=== PATIENT | female | born 1965 | race Caucasian/White ===

== ENCOUNTER → 2017-02-28 | Outpatient (CLI) | payer BC, OTHER ==
[2017-02-28 16:43] LABS: BASO % 0.5 %; BASO ABS # 0.04 K/uL (0-0.2); COMPLETE YES; EOS % 3.1 %; HEMATOCRIT 35.4 % (37-47); IG% 0.1 %; LYMPH % 48.5 %; MEAN CELL VOLUME 83.9 fL (80-100); MEAN CORPUSCULAR HEMOGLOBIN 25.4 pg (25-34); MEAN CORPUSCULAR HGB CONC 30.2 g/dl (32-36); MEAN PLATELET VOLUME 9.8 fL (7.4-10.4); NEUT % 38.8 %; PLATELET COUNT 517 K/uL (130-400); RED BLOOD COUNT 4.22 M/uL (4.2-5.4); WHITE BLOOD COUNT 7.63 K/uL (4.8-10.8)
--- NOTE | 2017-03-18 09:35 | CODING QUERY MEDICAL NECESSITY ---
SUPPORTING DIAGNOSIS NEEDED A supporting diagnosis is required for the test/procedure performed on this patient in order for us to be reimbursed by the patient's insurance. Please provide a supporting diagnosis for the following test/procedure listed below next to the test name along with your signature. *If there is no additional diagnosis for this patient that would support the following test/procedure please document that below next to the test/procedure. Test(s)/Procedure(s) that require a supporting diagnosis: DOS 02/28 * Vitamin D DIAGNOSIS: Provider Signature: Date: Thank you Loni Tobar Health Information Management Once completed, please kindly fax back to [phone] For questions please call [phone]
== END | disposition home or self-care (01) ==
LOC: C.LABPBG 14:51
PROVIDERS: ATTEND Physician Assistant
DX: M25.551 Pain in right hip (principal); M25.552 Pain in left hip; M25.561 Pain in right knee; M25.562 Pain in left knee; R50.9 Fever, unspecified; Z13.21 Encounter for screening for nutritional disorder; E55.9 Vitamin D deficiency, unspecified

== ENCOUNTER → 2017-03-05 | Outpatient (CLI) | payer BC, OTHER ==
[2017-03-05 18:11] LABS: LYME DISEASE AB IGG NEG (NEG)
[2017-03-05 18:16] LABS: LYME DISEASE AB IGM EQUIVOCAL (NEG)
[2017-03-11 10:42] LABS: 18KDIGG BAND NONREACTIVE (NONREACTIVE); 23KDIGG BAND NONREACTIVE (NONREACTIVE); 23KDIGM BAND NONREACTIVE (NONREACTIVE); 28KDIGG BAND NONREACTIVE (NONREACTIVE); 30KDIGG BAND NONREACTIVE (NONREACTIVE); 39KDIGG BAND NONREACTIVE (NONREACTIVE); 39KDIGM BAND NONREACTIVE (NONREACTIVE); 41KDIGG BAND REACTIVE (NONREACTIVE); 41KDIGM BAND NONREACTIVE (NONREACTIVE); 45KDIGG BAND NONREACTIVE (NONREACTIVE); 58KDIGG BAND NONREACTIVE (NONREACTIVE); 66KDIGG BAND NONREACTIVE (NONREACTIVE); 93KDIGG BAND NONREACTIVE (NONREACTIVE)
== END | disposition home or self-care (01) ==
LOC: C.LABPBG 15:12
PROVIDERS: ATTEND Physician Assistant
DX: R50.9 Fever, unspecified (principal)

== ENCOUNTER → 2017-03-11 | Outpatient (CLI) | payer BC ==
[2017-03-11 13:31] LABS: HEMATOCRIT 35.2 % (37-47); MEAN CELL VOLUME 83.6 fL (80-100); MEAN CORPUSCULAR HEMOGLOBIN 25.7 pg (25-34); MEAN CORPUSCULAR HGB CONC 30.7 g/dl (32-36); MEAN PLATELET VOLUME 10.6 fL (7.4-10.4); PLATELET COUNT 341 K/uL (130-400); RED BLOOD COUNT 4.21 M/uL (4.2-5.4); WHITE BLOOD COUNT 7.16 K/uL (4.8-10.8)
[2017-03-11 13:57] LABS: BLOOD UREA NITROGEN 11 mg/dl (7-18); BUN/CREATININE RATIO 14.8 (10-20); CALCIUM 8.6 mg/dl (8.5-10.1); CARBON DIOXIDE 26 mmol/L (21-32); CHLORIDE 111 mmol/L (98-107); CREATININE 0.74 mg/dl (0.60-1.20); GLUCOSE 80 mg/dl (70-99); POTASSIUM 3.9 mmol/L (3.5-5.1); SODIUM 142 mmol/L (136-145)
[2017-03-11 14:07] LABS: C-REACTIVE PROTEIN < 0.29 mg/dl (0-0.29); FERRITIN 3.7 ng/ml (8.0-388.0); RHEUMATOID FACTOR 47.2 U/mL (0-15); TOTAL IRON BINDING CAPACITY 364 mcg/dl (250-450)
[2017-03-11 14:51] LABS: BASO % 0.4 %; BASO ABS # 0.03 K/uL (0-0.2); COMPLETE YES; EOS % 9.1 %; IG% 0.1 %; LYMPH ABS # 3.65 K/uL (1.2-3.4); MONO % 8.4 %
== END | disposition home or self-care (01) ==
LOC: C.LABPBG 09:12
PROVIDERS: ATTEND Family Medicine
DX: R50.9 Fever, unspecified (principal); R53.83 Other fatigue; M25.50 Pain in unspecified joint

== ENCOUNTER → 2017-03-24 | Outpatient (CLI) | payer BC ==
--- NOTE | 2017-03-24 14:54 | DIAGNOSTIC IMAGING REPORT ---
LEFT HAND MIN 3 VIEWS ROUTINE CLINICAL HISTORY: TARSALGIA OF MULTIPLE JOINTS COMPARISON: None. DISCUSSION: Mild degenerative change of the interphalangeal joints throughout the hand. This is most prominent involving the proximal interphalangeal joint left fifth finger. No significant periventricular osteopenia. There is no evidence for soft tissue swelling. IMPRESSION: Mild/moderate degenerative change of the interphalangeal joints of the fifth finger and to a lesser extent fingers 1 through 4. Otherwise negative study Electronically signed by: Charles Puente M.D. 03/24/2017 2:53 PM Dictated Date/Time: 03/24/2017 2:52 PM
--- NOTE | 2017-03-24 14:58 | DIAGNOSTIC IMAGING REPORT ---
RIGHT HAND MIN 3 VIEWS ROUTINE CLINICAL HISTORY: Right hand pain COMPARISON: None. DISCUSSION: There are no acute fractures. There is minimal soft tissue swelling at the level of the proximal interphalangeal joints. There is no evidence of bony erosive disease. There is equivocal minor periarticular osteopenia IMPRESSION: 1. No acute fractures 2. No evidence of erosive disease Electronically signed by: Dexter Medel M.D. 03/24/2017 2:57 PM Dictated Date/Time: 03/24/2017 2:54 PM
[2017-03-30 07:12] LABS: ANTI-CENTROMERE AB <1.0 NEG AI (<1.0 NEG); ANTI-SS-A <1.0 NEG AI (<1.0 NEG); ANTI-SS-B <1.0 NEG AI (<1.0 NEG); DNA ds CRITHIDIA POSITIVE (NEGATIVE); Sm Antibody <1.0 NEG AI (<1.0 NEG)
== END | disposition home or self-care (01) ==
LOC: C.RAD1850 14:32
PROVIDERS: ATTEND Internal Medicine Rheumatology
DX: H04.123 Dry eye syndrome of bilateral lacrimal glands (principal); M25.50 Pain in unspecified joint; R53.83 Other fatigue; R70.0 Elevated erythrocyte sedimentation rate; R76.8 Other specified abnormal immunological findings in serum

== ENCOUNTER → 2017-03-25 | Outpatient (CLI) | payer BC | END | disposition home or self-care (01) | LOC: C.LABSPEC 11:06 | PROVIDERS: ATTEND Family Medicine | DX: M25.50 Pain in unspecified joint (principal) ==

== ENCOUNTER → 2017-08-18 | Outpatient (CLI) | payer BC ==
[2017-08-18 12:03] LABS: URINE APPEARANCE CLEAR (CLEAR); URINE BILIRUBIN NEG (NEG); URINE COLOR YELLOW; URINE NITRITE NEG (NEG); UROBILINOGEN NEG (NEG)
[2017-08-18 12:07] LABS: MANUAL MICROSCOPIC REQUIRED? NO; REVIEW REQ? NO
== END | disposition home or self-care (01) ==
LOC: C.LABSPEC 11:03
PROVIDERS: ATTEND Family Medicine
DX: R39.9 Unspecified symptoms and signs involving the genitourinary system (principal)

== ENCOUNTER → 2018-02-13 | Outpatient (CLI) | payer BC | END | disposition home or self-care (01) | LOC: C.LABPBG 12:51 | PROVIDERS: ATTEND Family Medicine | DX: Z12.31 Encounter for screening mammogram for malignant neoplasm of breast (principal); R31.29 Other microscopic hematuria ==

== ENCOUNTER → 2018-02-13 | Outpatient (CLI) | payer BC | END | disposition home or self-care (01) | LOC: C.PAPS 14:08 | PROVIDERS: ATTEND Family Medicine | DX: Z01.419 Encounter for gynecological examination (general) (routine) without abnormal findings (principal) ==

== ENCOUNTER 2018-03-12 13:31 | Emergency (ER) | payer BC ==
[~2018-03-12] VITALS: Ht 170.2 cm; Wt 112.3 kg
[2018-03-12 13:34] VITALS: TEMP 36.7; Ht 170.2 cm; Wt 112.3 kg
[2018-03-12] MEDS ORDERED: CYAN250T PO (14:25)
[2018-03-12] MEDS ORDERED: FLUT0.15 NAE (14:25)
[2018-03-12] MEDS ORDERED: COLLCAP PO (14:25)
[2018-03-12] MEDS ORDERED: BECL1AER5 NAE (14:25)
[2018-03-12] MEDS ORDERED: MAGN1CAP2 PO (14:25)
[2018-03-12] MEDS ORDERED: FRCT/ PO (14:25)
[2018-03-12] MEDS ORDERED: VENL75CA PO (14:25)
[2018-03-12] MEDS ORDERED: TURM1CAP4 PO (14:25)
[2018-03-12] MEDS ORDERED: PROCHLORPERAZINE 5 MG/ML 2 ML VIAL IV STA (14:26)
[2018-03-12] MEDS ORDERED: KETOROLAC TROMETHAMINE 30 MG/ML VIAL IV STA (14:26)
[2018-03-12] MEDS ORDERED: DEXAMETHASONE SOD INJ 4 MG/ML VIAL IV STA (14:26)
[2018-03-12] MEDS ORDERED: ACETAMINOPHEN 500 MG TAB PO STA (14:26)
[2018-03-12] MEDS ORDERED: SODIUM CHLORIDE 0.9% 1000ML 1,000 ML IV STA (14:26)
[2018-03-12] MEDS ORDERED: DiphenhydrAMINE HCL 50 MG/ML VIAL IV STA (14:26)
--- NOTE | 2018-03-12 15:27 | DIAGNOSTIC IMAGING REPORT ---
ANGIOGRAPHY HEAD COMBO CLINICAL HISTORY: 52 years-old Female presents with acute severe headache COMPARISON STUDY: None available TECHNIQUE: Unenhanced axial CT scan of the brain is performed. Subsequently, following the IV administration of 93 cc of Optiray 320, CT angiogram of the brain was performed from the skull base to the vertex. Images are reviewed in the axial, sagittal, and coronal planes. 3-D MIPS images are created and assessed. IV contrast was administered without complication. A dose lowering technique was utilized adhering to the principles of ALARA. CT DOSE: 723.85 mGy.cm FINDINGS: CT BRAIN: There is no acute intracranial hemorrhage, midline shift, hydrocephalus, intracranial mass, territorial ischemia or abnormal extra-axial collections. No abnormal intra-axial or extra-axial enhancement. Mastoid air cells and middle ear cavities are clear. No calvarial fracture. Mild polypoid mucosal thickening of the left maxillary sinus. CT ANGIOGRAM OF THE BRAIN: The imaged bilateral internal carotid arteries are patent. The bilateral anterior and middle cerebral arteries are also patent. Left vertebral artery is dominant. The right vertebral artery is markedly diminutive in size with the majority of the vessel terminating into the right PICA. Basilar artery appears patent and within normal limits. origin of the right posterior cerebral artery. There is no aneurysm, or proximal branch occlusion identified. Dural sinuses appear patent. IMPRESSION: 1. No acute intracranial abnormality identified. 2. Dominant left vertebral artery with markedly diminutive right vertebral artery. 3. Incidental note is made of origin of the right posterior cerebral artery. 4. No aneurysm, dissection or proximal branch occlusion identified. 5. Mild polypoid mucosal thickening of the left maxillary sinus. The above report was generated using voice recognition software. It may contain grammatical, syntax or spelling errors. Electronically signed by: Abraham Key M.D. 03/12/2018 3:26 PM Dictated Date/Time: 03/12/2018 3:19 PM
[2018-03-12 16:17] VITALS: BP 135/82; PULSE 84; O2SAT 96
--- NOTE | 2018-03-12 19:01 | EMERGENCY ROOM VISIT NOTE ---
History Report prepared by Raymond: Dionte Everett Under the Supervision of: Dr. Chino Wilson M.D. First contact with patient: 14:23 Chief Complaint: HEADACHE Stated Complaint: MIGRAIN History of Present Illness The patient is a 52 year old female who presents to the Emergency Room with complaints of a constant headache beginning last evening at 1900. She currently rates her discomfort a 7/10 in severity. The patient states she was out to dinner last night when she developed "lightning bolts" in her vision. She reports she then developed her headache, nausea, and strange smells. The patient notes she has a history of headaches and seeing the "lightning bolts" is not new. She states she took several doses of Fioricet throughout last evening and this morning. The patient reports it did not help her symptoms. She notes she was not able to remember household items last evening such as a closet. The patient states she woke up this morning and still had her symptoms. She reports she developed the lightning bolts again at work. The patient notes light makes her symptoms worse. She states the last headache she had was two months ago. The patient denies vomiting, seeing a neurologist, hitting her head , falling. Source of History: patient Onset: last evening at 1900 Position: head Symptom Intensity: 7/10 Quality: ache Timing: constant Modifying Factors (Worsening): other (lighting) Associated Symptoms: + nausea, No vomiting Note: Associated symptoms: lightning bolts in her vision, strange smells, inability to remember house hold items Denies: hitting her head, falling Review of Systems See HPI for pertinent positives & negatives. A total of 10 systems reviewed and were otherwise negative. Past Medical & Surgical Medical Problems: (1) Headache Family History Patient reports no known family medical history. Social History Smoking Status: Never Smoker Marital Status: Housing Status: lives with family Occupation Status: employed Current/Historical Medications Scheduled Beclomethasone Dipropionate (N (Qnasl), 2 SPRY HERI DAILY Collagen-Vitamin C (Collagen Plus Vitamin C), 1 CAP PO DAILY Cyanocobalamin (Vitamin B-12), 1 TAB PO DAILY Fluticasone Propionate (Nasal) (Flonase Allergy Relief), 2 SPRAYS HERI DAILY Magnesium Oxide (Mg Supplement (Magnesium), 1 CAP PO DAILY Turmeric (Curcuma Longa) (Turmeric), 1 CAP PO DAILY Venlafaxine Hcl (Effexor Xr), 75 MG PO DAILY Scheduled PRN Acetamin/Butalbital/Caffeine (Fioricet), 1-2 TAB PO Q4H PRN for Migraine Allergies Coded Allergies: No Known Allergies (Unverified , 03/12/18) Physical Exam Vital Signs Date Time Temp Pulse Resp B/P (MAP) Pulse Ox O2 Delivery O2 Flow Rate FiO2 03/12/18 16:17 84 16 135/82 96 03/12/18 14:49 83 18 129/80 97 Room Air 03/12/18 13:34 36.7 81 18 134/88 97 Room Air Physical Exam GENERAL: Patient is in no acute distress. HEENT: No acute trauma, normocephalic atraumatic, mucous membranes moist, no nasal congestion, no scleral icterus. Pupils equal and reactive to light. NECK: No stridor, no adenopathy, no meningismus, trachea is midline. LUNGS: Clear to auscultation bilaterally, no wheeze, no rhonchi, breath sounds equal. HEART: Without murmurs gallops or rubs, regular rate and rhythm. ABDOMEN: Soft, nontender, bowel sounds positive, no hernias, no peritonitis. EXTREMITIES: No cyanosis or edema, full range of motion of all the joints without pain or difficulty, no signs for acute trauma. NEUROLOGIC: Oriented x 3, no acute motor or sensory deficits, no focal weakness. No cerebellar deficits. SKIN: No rash, no jaundice, no diaphoresis Medical Decision & Procedures ER Provider Diagnostic Interpretation: Radiology results as stated below per my review and radiologist interpretation: ANGIOGRAPHY HEAD COMBO CLINICAL HISTORY: 52 years-old Female presents with acute severe headache COMPARISON STUDY: None available TECHNIQUE: Unenhanced axial CT scan of the brain is performed. Subsequently, following the IV administration of 93 cc of Optiray 320, CT angiogram of the brain was performed from the skull base to the vertex. Images are reviewed in the axial, sagittal, and coronal planes. 3-D MIPS images are created and assessed. IV contrast was administered without complication. A dose lowering technique was utilized adhering to the principles of ALARA. CT DOSE: 723.85 mGy.cm FINDINGS: CT BRAIN: There is no acute intracranial hemorrhage, midline shift, hydrocephalus, intracranial mass, territorial ischemia or abnormal extra-axial collections. No abnormal intra-axial or extra-axial enhancement. Mastoid air cells and middle ear cavities are clear. No calvarial fracture. Mild polypoid mucosal thickening of the left maxillary sinus. CT ANGIOGRAM OF THE BRAIN: The imaged bilateral internal carotid arteries are patent. The bilateral anterior and middle cerebral arteries are also patent. Left vertebral artery is dominant. The right vertebral artery is markedly diminutive in size with the majority of the vessel terminating into the right PICA. Basilar artery appears patent and within normal limits. origin of the right posterior cerebral artery. There is no aneurysm, or proximal branch occlusion identified. Dural sinuses appear patent. IMPRESSION: 1. No acute intracranial abnormality identified. 2. Dominant left vertebral artery with markedly diminutive right vertebral artery. 3. Incidental note is made of origin of the right posterior cerebral artery. 4. No aneurysm, dissection or proximal branch occlusion identified. 5. Mild polypoid mucosal thickening of the left maxillary sinus. The above report was generated using voice recognition software. It may contain grammatical, syntax or spelling errors. Electronically signed by: Abraham Key M.D. 03/12/2018 3:26 PM Dictated Date/Time: 03/12/2018 3:19 PM Medications Administered Medications (Trade) Dose Ordered Sig/Dev Route Start Time Stop Time Status Last Admin Dose Admin Prochlorperazine Edisylate (Compazine Inj) 10 mg NOW STAT IV 03/12/18 14:26 03/12/18 14:32 DC 03/12/18 14:48 10 MG Sodium Chloride 1,000 ml @ 999 mls/hr Q1H1M STAT IV 03/12/18 14:26 03/12/18 15:26 DC 03/12/18 14:47 999 MLS/HR Ketorolac Tromethamine (Toradol Inj) 30 mg NOW STAT IV 03/12/18 14:03/12/18 14:32 DC 03/12/18 14:48 30 MG Diphenhydramine HCl (Benadryl Inj) 50 mg NOW STAT IV 03/12/18 14:26 03/12/18 14:32 DC 03/12/18 14:48 50 MG Dexamethasone Sodium Phosphate (Decadron Inj) 10 mg NOW STAT IV 03/12/18 14:26 03/12/18 14:32 DC 03/12/18 14:48 10 MG Acetaminophen (Tylenol Tab) 1,000 mg NOW STAT PO 03/12/18 14:26 03/12/18 14:32 DC 03/12/18 14:47 1,000 MG ED Course 1424: The patient was evaluated in room B10. A complete history and physical exam was performed. 1426: Ordered Acetaminophen 1000mg PO, Decadron 10mg IV, Benadryl 50mg IV, Toradol 30mg IV, Sodium Chloride 1000 ml @ 999 mls/hr IV, Compazine 10mg IV 1604: Reevaluated the patient. Discussed results and discharge instructions: she verbalized understanding and agreement. The patient is ready for discharge. Medical Decision The patient is a 52 year old female who presents to the ED with complaints of a headache. Differential diagnoses considered include migraine headache, tension headache, meningitis, aneurysm, dehydration, intracellular bleeding, sinusitis. The patient presents with a headache and some visual disturbance. She carries a history of migraines. She has never had a brain image. On exam, there were no focal neurologic deficits. No meningismus, she was not febrile or toxic. Brain CT does not show bleeding, no evidence for aneurysm. Patient received IV saline, IV Compazine, IV Benadryl, IV Toradol, IV Decadron. She received oral Tylenol. She feels improved. The headache is likely migrainous. The patient is being discharged with outpatient follow-up. She was reassured. Medication Reconcilliation Current Medication List: was personally reviewed by me Blood Pressure Screening Patient's blood pressure: Elevated blood pressure Blood pressure disposition: Elevated BP felt to be situational Impression Primary Impression: Headache Additional Impression: Visual disturbance Scribe Attestation The scribe's documentation has been prepared under my direction and personally reviewed by me in its entirety. I confirm that the note above accurately reflects all work, treatment, procedures, and medical decision making performed by me. Departure Information Dispostion Home / Self-Care Referrals Caridad Linares MD (PCP) Forms HOME CARE DOCUMENTATION FORM, IMPORTANT VISIT INFORMATION Patient Instructions My [facility] Additional Instructions fluids rest sleep return if worsening Brain CT scan was ok today Problem Qualifiers
== END 2018-03-12 16:13 | disposition home or self-care (01) ==
LOC: C.EDB 13:32
DX: R51 Headache (principal); H53.9 Unspecified visual disturbance; Z79.899 Other long term (current) drug therapy

== ENCOUNTER 2023-05-30 10:08 | Inpatient (IN) ==
[2023-05-30] MEDS ORDERED: KETOROLAC TROMETHAMINE 15 MG/ML VIAL IV ONE (10:31)
[2023-05-30] MEDS ORDERED: ONDANSETRON INJ 2 MG/ML 2 ML VIAL IV STA (10:31)
[2023-05-30] MEDS ORDERED: fentaNYL citrate PF 100 MCG/2 ML VIAL IV STA (10:31)
[2023-05-30] MEDS ORDERED: SODIUM CHLORIDE 0.9% 1000ML 1,000 ML IV STA (10:31)
--- NOTE | 2023-05-30 10:35 | Emergency Department Note ---
Impression & Plan Myositis, Rhabdomyolysis, Abnormal LFTs ED Provider Note NAME: JORDAN PATIÑO AGE: 57 SEX: F : 1965 ARRIVES VIA: Walk-In INFORMANT: Patient, ED PROVIDER(S): Hugo Tamez DO CHIEF COMPLAINT: Muscle aches HPI: The patient is a 57-year-old female who presented to the emergency department for an evaluation muscle pain. The patient states that she has had ongoing symptoms since March of this year. She initially started having pain in her left shoulder. This is not necessarily new for her. She had an injection recently with orthopedics. She had a cortisone injection of the shoulder. She has started noticing over the last few days that she has been having very bad muscle aches. She describes her through her legs as well as her upper extremities. She states it hurts when she tries to walk. She denies having any chest pain or difficulty breathing. She denies having any abdominal pain. She denies having any dysuria hematuria or frequency. The patient called her family doctor and she was advised to call her orthopedic doctor because of the recent injection. She was then advised to come to the emergency department by orthopedics. She did have a bite of some sort of insect to her neck. She denies any recent bull's-eye rashes. ROS: See above HPI for pertinent positives & negatives. A total of 10 systems reviewed and were otherwise negative. PAST MEDICAL HISTORY: See Below PAST SURGICAL HISTORY: See Below FAMILY HISTORY: See Below SOCIAL HISTORY: See Below HOME MEDICATIONS: See Below ALLERGIES: See Below VITALS: See Below PHYSICAL EXAMINATION: GENERAL: The patient is awake and alert. The patient is somewhat anxious and uncomfortable appearing EYES: The conjunctivae are clear. The pupils are round and reactive. EARS, NOSE, MOUTH AND THROAT: The nose is without any evidence of any deformity. NECK: The neck is nontender and supple. RESPIRATORY: Normal respiratory effort is noted there is no evidence of wheezing rhonchi or rales CARDIOVASCULAR: Regular rate and rhythm noted there no murmurs rubs or gallops normal S1 normal S2. GASTROINTESTINAL: The abdomen is soft. Abdomen is nontender. MUSCULOSKELETAL/EXTREMITIES: There is no evidence of gross deformity full range of motion is noted in the hips and shoulders. SKIN: There is no obvious evidence of any rash. There are no petechiae, pallor or cyanosis noted. NEUROLOGIC: Patient is awake alert and oriented x3 strength is symmetric patellar reflexes are 2+ bilaterally MEDICAL DECISION MAKING: The patient is a 57-year-old female who presented to the emergency department for an evaluation of muscle pain. The patient did note some shoulder pain initially but this was not new for her. It had been going on since March of this year. She was seen by orthopedics and had an injection with cortisone in her left shoulder. She states that that pain is no worse but she started noticing over the last few days that she was having severe upper and lower extremity p ain. She also had pain to her back. The patient was treated with IV fluids and IV pain medication in the emergency department. She was reevaluated multiple times. She was found to have a significant elevation in her CPK as well as in her LFTs. I am unsure the exact cause of this. It is possible this could be related to postinfectious process or possibly from some medications including the injection. I discussed the patient's condition with her. I discussed her condition with the on-call [facility]ist. They have agreed to evaluate the patient in the emergency department. Triage Nursing notes reviewed. Prior medical records reviewed Vital Signs: reviewed and remarkable for no significant abnormalities Differential diagnosis: Muscular strain, fracture, dislocation, DVT, joint effusion, infection, soft tissue injury, vascular compromise, as well as other pathologies. ER treatment provided: See below Diagnostics interpreted by me: ECG: EKG was obtained in the emergency department. My interpretation is normal sinus rhythm at 83 bpm. There is no ectopy. There is no acute ST segment abnormalities noted. No previous tracing was available. Cardiac Monitoring: An order was placed for continuous cardiac monitoring. The monitor shows a rate of 84 bpm with sinus rhythm. Laboratory studies: As stated above and show below. Imaging studies: See below. Radiographic imaging was reviewed by myself Consultation(s): Dr. Bush who is on-call for the [facility]ist group was notified about the patient. Past Med/Surg History Medical History Anxiety Arthralgia of multiple joints Arthritis of knee, degenerative Connective tissue disease overlap syndrome Dry eyes, bilateral Iron deficiency anemia Lateral meniscus tear Positive RACHEL (antinuclear antibody) Surgical History History of ankle surgery History of carpal tunnel release History of delivery History of tonsillectomy Family History Aunt Breast cancer Father Myocardial infarction Diabetes Heart disease Hypertension Mother Stroke Hearing loss Allergies Denies family history of Ovarian cancer Prostate cancer Colorectal cancer Social History Smoking Status: Never smoker Do You Dip or Chew Tobacco: No; Hx Alcohol Use: No Hx Substance Use: No Preferred Language: Ghanaian Communication Ability: Effective Visual Impairment: Limited Hearing Ability: Normal Beliefs That Will Affect Care: None marital status: Current Living Situation: Spouse and Family Current Living Situation Comment: Lives at home with Spouse, Mother and two Grandchildren. 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- [employer] How many Children do You have: 2 Feels Safe at Home: Yes Childhood Exposure to Second-Hand Smoke: Yes caffeine: Yes (Soda x 1 bottle per day.) during the past year weight has: increased > 10 lbs Dental Care, Regularly: Yes Physical Activity Frequency: Daily Seatbelt Use: always Sunscreen Use: No Allergies Allergies Allergy/AdvReac Type Severity Reaction Status Date / Time latex Allergy Verified 06/29/20 10:57 No Known Drug Allergies Allergy Verified 06/29/20 10:57 Home Meds Home Medications Medication Instructions Recorded Confirmed baclofen 10 mg tablet 10 mg PO BID PRN Other 04/29/23 05/30/23 conjugated estrogens 0.625 mg/gram 1 applic vaginal UD 04/29/23 05/30/23 vaginal cream (Premarin) cyanocobalamin (vitamin B-12) 1,000 mcg PO DAILY 04/29/23 05/30/23 1,000 mcg tablet,extended release fluoride (sodium) 1.1 % dental 1 ea PO UD 04/29/23 05/30/23 paste (Sodium Fluoride 5000 Dry Mouth) hydroxychloroquine 200 mg tablet 200 mg PO DAILY 04/29/23 05/30/23 montelukast 10 mg tablet 10 mg PO DAILY 04/29/23 05/30/23 phentermine 37.5 mg tablet 37.5 mg PO DAILY 04/29/23 05/30/23 Turmeric 1 cap PO DAILY 05/30/23 05/30/23 azelastine 137 mcg (0.1 %) nasal 2 sprays intranasal BID PRN Other 05/30/23 05/30/23 spray aerosol magnesium 250 mg tablet 250 mg PO DAILY 05/30/23 05/30/23 meloxicam 15 mg tablet 15 mg PO DAILY 05/30/23 05/30/23 mometasone 50 mcg/actuation nasal 2 sprays intranasal DAILY PRN Other 05/30/23 05/30/23 spray Previous Rx's Medication Instructions Recorded [id number] 1 - 2 tab PO Q4H PRN migraine 06/07/19 50 mg-325 mg-40 mg tablet headache #60 tabs cyclobenzaprine 5 mg tablet 5 mg PO TID PRN muscle spasm #10 10/05/19 tabs Results & Data (ED) Vital Signs Vital Signs - 24 hr 05/30/23 10:13 05/30/23 11:14 05/30/23 11:46 Temperature 36.7 C Temperature Source Temporal Artery Scan Pulse Rate 94 H 79 Pulse Rate [Right Finger] 95 H Pulse Rate from SpO2 Sensor Respiratory Rate 20 18 Respiratory Effort / Characteristics Non-Labored Respiratory Depth Normal Normal Blood Pressure 135/87 Blood Pressure [Right Arm] 140/86 Blood Pressure Mean 103 Blood Pressure Mean [Right Arm] 104 Pulse Oximetry 100 99 Oxygen Delivery Method Room Air Sepsis Recent Fever Within 48 Hours No Sepsis New/Unexplained Change in Mental Status N/A Sepsis Action Taken by Nursing No Action Required 05/30/23 11:09 05/30/23 11:30 05/30/23 11:46 Temperature Temperature Source Pulse Rate 83 80 93 H Pulse Rate [Right Finger] Pulse Rate from SpO2 Sensor 83 79 94 H Respiratory Rate 18 18 14 Respiratory Effort / Characteristics Respiratory Depth Blood Pressure Blood Pressure [Right Arm] Blood Pressure Mean Blood Pressure Mean [Right Arm] Pulse Oximetry 96 98 100 Oxygen Delivery Method Sepsis Recent Fever Within 48 Hours Sepsis New/Unexplained Change in Mental Status Sepsis Action Taken by Nursing 05/30/23 11:46 05/30/23 12:00 05/30/23 12:30 Temperature Temperature Source Pulse Rate 80 80 Pulse Rate [Right Finger] Pulse Rate from SpO2 Sensor 80 80 Respiratory Rate 17 17 Respiratory Effort / Characteristics Respiratory Depth Blood Pressure 140/86 Blood Pressure [Right Arm] Blood Pressure Mean 94 Blood Pressure Mean [Right Arm] Pulse Oximetry 98 100 Oxygen Delivery Method Sepsis Recent Fever Within 48 Hours Sepsis New/Unexplained Change in Mental Status Sepsis Action Taken by Nursing 05/30/23 13:00 Temperature Temperature Source Pulse Rate 84 Pulse Rate [Right Finger] Pulse Rate from SpO2 Sensor 86 Respiratory Rate 21 Respiratory Effort / Characteristics Respiratory Depth Blood Pressure Blood Pressure [Right Arm] Blood Pressure Mean Blood Pressure Mean [Right Arm] Pulse Oximetry 100 Oxygen Delivery Method Sepsis Recent Fever Within 48 Hours Sepsis New/Unexplained Change in Mental Status Sepsis Action Taken by [facility] Medications Current Medication List: was personally reviewed by me Laboratory Data Attestation: I reviewed the patient's lab results. 05/30/23 11:00 05/30/23 11:00 Lab Results 05/30/23 05/30/23 05/30/23 Range/Units 10:46 11:00 11:00 WBC 10.95 H (4.8-10.8) K/ul RBC 5.20 (4.20-5.40) M/uL Hgb 15.1 (12.0-16.0) g/dl Hct 45.8 (37.0-47.0) % MCV 88.1 (80.0-100.0) fL MCH 29.0 (25.0-34.0) pg MCHC 33.0 (32.0-36.0) g/dL RDW Std Deviation 41.5 (36.4-46.3) fL RDW Coeff of Annalise 12.9 (11.5-14.5) % Plt Count 330 (130-400) K/uL MPV 10.7 (9.4-12.4) fL Immature Gran % (Auto) 0.3 % Neut % (Auto) 68.2 % Lymph % (Auto) 23.7 % Door % (Auto) 5.8 % Eos % (Auto) 1.6 % Baso % (Auto) 0.4 % Neut # (Auto) 7.47 H (1.40-6.50) K/uL Lymph # (Auto) 2.59 (1.2-3.4) K/uL Door # (Auto) 0.64 H (0.11-0.59) K/uL Eos # (Auto) 0.18 (0-0.50) K/uL Baso # (Auto) 0.04 (0-0.2) K/uL Immature Gran # (Auto) 0.03 (0.01-0.20) K/uL ESR 22 (0-30) mm/hr PT (9.0-12.0) Seconds INR (0.9-1.1) APTT (21.0-31.0) Seconds PTT Ratio Sodium (136-145) mmol/L Potassium (3.5-5.1) mmol/L Chloride (98-107) mmol/L Carbon Dioxide (21-32) mmol/L Anion Gap (3-11) BUN (6-23) mg/dl Creatinine (0.6-1.2) mg/dl Est Cr Clr Drug Dosing ml/min Est GFR ( Amer) ml/min Est GFR (Non-Af Amer) ml/min BUN/Creatinine Ratio (10-20) Glucose (70-99(Fasting)) mg/dl Calcium (8.6-10.3) mg/dl Total Bilirubin (0.2-1.0) mg/dl AST (13-39) U/L ALT (7-52) U/L Alkaline Phosphatase (34-104) U/L Total Creatine Kinase (26-192) U/L Troponin I High Sens (0-14) pg/ml C-Reactive Protein (0-0.5) mg/dl Total Protein (6.0-8.3) gm/dl Albumin (3.4-5.0) gm/dl Globulin (2.5-4.0) gm/dl Albumin/Globulin Ratio (0.9-2) Lipase (11-82) U/L Procalcitonin (0-0.5) ng/ml Urine Color Dark Yellow Urine Appearance Clear (Clear) Urine pH 6.5 (4.5-7.5) Ur Specific [place] >= 1.030 (1.000-1.030) Urine Protein 3+ H (Negative) Urine Glucose (UA) Negative (Negative) Urine Ketones Trace H (Negative) Urine Blood 3+ H (Negative) Urine Nitrite Negative (Negative) Urine Bilirubin 1+ H (Negative) Urine Urobilinogen Negative (Negative) Ur Leukocyte Esterase Negative (Negative) Urine RBC 0-4 (0-4) /hpf Urine WBC 5-10 H (0-5) /hpf Ur Epithelial Cells 20-30 H (0-5) /lpf Urine Bacteria 1+ H (Negative) Hyaline Casts 0-5 (0-5) /lpf Granular Casts 1-5 H (0) /lpf Urine Mucus Present A (None Prsent) Anaplasma Smear See Comment Lyme Disease IgG Ab (Negative) Lyme Disease IgM Ab (Negative) 05/30/23 05/30/23 05/30/23 Range/Units 11:00 11:00 11:00 WBC (4.8-10.8) K/ul RBC (4.20-5.40) M/uL Hgb (12.0-16.0) g/dl Hct (37.0-47.0) % MCV (80.0-100.0) fL MCH (25.0-34.0) pg MCHC (32.0-36.0) g/dL RDW Std Deviation (36.4-46.3) fL RDW Coeff of Annalise (11.5-14.5) % Plt Count (130-400) K/uL MPV (9.4-12.4) fL Immature Gran % (Auto) % Neut % (Auto) % Lymph % (Auto) % Door % (Auto) % Eos % (Auto) % Baso % (Auto) % Neut # (Auto) (1.40-6.50) K/uL Lymph # (Auto) (1.2-3.4) K/uL Door # (Auto) (0.11-0.59) K/uL Eos # (Auto) (0-0.50) K/uL Baso # (Auto) (0-0.2) K/uL Immature Gran # (Auto) (0.01-0.20) K/uL ESR (0-30) mm/hr PT 10.0 (9.0-12.0) Seconds INR 0.9 (0.9-1.1) APTT 20.8 L (21.0-31.0) Seconds PTT Ratio 0.7 Sodium 139 (136-145) mmol/L Potassium 3.7 (3.5-5.1) mmol/L Chloride 106 (98-107) mmol/L Carbon Dioxide 28 (21-32) mmol/L Anion Gap 5 (3-11) BUN 15 (6-23) mg/dl Creatinine 0.74 (0.6-1.2) mg/dl Est Cr Clr Drug Dosing 84.0 ml/min Est GFR ( Amer) 102.8 ml/min Est GFR (Non-Af Amer) 88.7 ml/min BUN/Creatinine Ratio 20.3 H (10-20) Glucose 98 (70-99(Fasting)) mg/dl Calcium 9.0 (8.6-10.3) mg/dl Total Bilirubin 0.3 (0.2-1.0) mg/dl AST 518 H (13-39) U/L ALT 233 H (7-52) U/L Alkaline Phosphatase 107 H (34-104) U/L Total Creatine Kinase 33229 H (26-192) U/L Troponin I High Sens 17.6 H (0-14) pg/ml C-Reactive Protein 0.95 H (0-0.5) mg/dl Total Protein 7.1 (6.0-8.3) gm/dl Albumin 3.6 (3.4-5.0) gm/dl Globulin 3.5 (2.5-4.0) gm/dl Albumin/Globulin Ratio 1.0 (0.9-2) Lipase 33 (11-82) U/L Procalcitonin < 0.05 (0-0.5) ng/ml Urine Color Urine Appearance (Clear) Urine pH (4.5-7.5) Ur Specific [place] (1.000-1.030) Urine Protein (Negative) Urine Glucose (UA) (Negative) Urine Ketones (Negative) Urine Blood (Negative) Urine Nitrite (Negative) Urine Bilirubin (Negative) Urine Urobilinogen (Negative) Ur Leukocyte Esterase (Negative) Urine RBC (0-4) /hpf Urine WBC (0-5) /hpf Ur Epithelial Cells (0-5) /lpf Urine Bacteria (Negative) Hyaline Casts (0-5) /lpf Granular Casts (0) /lpf Urine Mucus (None Prsent) Anaplasma Smear Lyme Disease IgG Ab Negative (Negative) Lyme Disease IgM Ab Negative (Negative) Administered Medications Discontinued Medications Fentanyl Citrate (Fentanyl Citrate Pf 100 Mcg/2 Ml Vial) 50 mcg IV NOW STA Stop: 05/30/23 10:32 Last Admin: 05/30/23 10:52 Dose: 50 mcg Documented By: ARNEL Sodium Chloride (Nss 1000ml) 1,000 mls @ 999 mls/hr IV .Q1H1M STA Stop: 05/30/23 11:31 Last Infusion: 05/30/23 12:09 Dose: 0 mls/hr Documented By: Admin: 05/30/23 10:59 Dose: 999 mls/hr Documented By: ARNEL Sodium Chloride (Nss 1000ml) 1,000 mls @ 999 mls/hr IV .Q1H1M ONE Stop: 05/30/23 13:08 Last Admin: 05/30/23 12:14 Dose: 999 mls/hr Documented By: ARNEL Ketorolac Tromethamine (Ketorolac Tromethamine 15 Mg/Ml Vial) 10 mg IV NOW ONE Stop: 05/30/23 10:32 Last Admin: 05/30/23 10:53 Dose: 10 mg Documented By: ARNEL Ondansetron HCl (Ondansetron Inj 2 Mg/Ml 2 Ml Vial) 4 mg IV NOW STA Stop: 05/30/23 10:32 Last Admin: 05/30/23 10:52 Dose: 4 mg Documented By: ARNEL Imaging Data Attestation: I personally reviewed and interpreted this imaging study as follows: My Impression: 1 view chest x-ray was obtained in the emergency department. My interpretation is no free air or definite infiltrate, final report below Radiologist's Impression: Chest X-Ray 05/30/23 10:31 XR chest 1V portable CLINICAL HISTORY: Fever TECHNIQUE: Single frontal radiograph of the chest was obtained. Comparison: None available at the time of this dictation. FINDINGS: No lines and tubes are seen. The cardiomediastinal silhouette is normal. The lungs are clear. No evidence of pleural effusion or pneumothorax. IMPRESSION: No acute abnormalities and in particular no radiographic evidence of pneumonia. ACT 112: Negative or not required by law. Electronically signed by: Isiah Arenas M.D. 05/30/2023 11:30 AM Discharge Plan Visit Data Chief Complaint: Pain (Generalized) Stated Complaint: BODY ACHES, MUSCLE CRAMPS ED Provider: Hugo Tamez Discharge Problem: Myositis, Rhabdomyolysis, Abnormal LFTs Patient Disposition: Being Evaluated by Hospitalist Forms Stand Alone Forms: My [facility] Prescriptions Prescriptions: No Action [id number]-[id number] 50-325-40 mg tablet 1 - 2 tab PO Q4H PRN (Reason: migraine headache) Qty: 60 1RF cyclobenzaprine 5 mg tablet 5 mg PO TID PRN (Reason: muscle spasm) Qty: 10 0RF cyanocobalamin (vitamin B-12) 1,000 mcg tablet extended release 1,000 mcg PO DAILY Premarin 0.625 mg/gram cream 1 applic vaginal UD Rx Instructions: twice a week fluoride (sodium) [Sodium Fluoride 5000 Dry Mouth] 1.1 % paste 1 ea PO UD phentermine 37.5 mg tablet 37.5 mg PO DAILY baclofen 10 mg tablet 10 mg PO BID PRN (Reason: Other) montelukast 10 mg tablet 10 mg PO DAILY hydroxychloroquine 200 mg tablet 200 mg PO DAILY meloxicam 15 mg tablet 15 mg PO DAILY magnesium 250 mg Tablet 250 mg PO DAILY Turmeric 1 cap PO DAILY Rx Instructions: pt didnt give dose mometasone 50 mcg/actuation spray,non-aerosol 2 sprays INTNAS DAILY PRN (Reason: Other) Rx Instructions: administer into each nostril azelastine 137 mcg (0.1 %) aerosol,spray 2 sprays INTNAS BID PRN (Reason: Other) Rx Instructions: administer into each nostril Referrals Referrals: Victoria Billingsley CRNP [Primary Care Provider] -
[2023-05-30 11:26] LABS: Appearance Urine Clear (Clear); Bilirubin Urine 1+ (Negative); Blood Urine 3+ (Negative); Glucose Urine UA Negative (Negative); Ketones Urine Trace (Negative); Leukocyte Esterase Urine Negative (Negative); Nitrite Urine Negative (Negative); Protein Urine 3+ (Negative); Specific Gravity Urine >= 1.030 (1.000-1.030); Urobilinogen Urine Negative (Negative); pH Urine 6.5 (4.5-7.5)
[2023-05-30 11:31] LABS: Color Urine Dark Yellow
[2023-05-30 11:31] LABS: Basophils # (auto) 0.04 K/uL (0-0.2); Basophils % (auto) 0.4 %; Eosinophils # (auto) 0.18 K/uL (0-0.50); Eosinophils % (auto) 1.6 %; Hematocrit (blood only) 45.8 % (37.0-47.0); Hemoglobin 15.1 g/dl (12.0-16.0); Immature Granulocytes # (auto) 0.03 K/uL (0.01-0.20); Immature Granulocytes % (auto) 0.3 %; Lymphocytes # (auto) 2.59 K/uL (1.2-3.4); Lymphocytes % (auto) 23.7 %; Mean Corpuscular Volume 88.1 fL (80.0-100.0); Mean Platelet Volume 10.7 fL (9.4-12.4); Monocytes # (auto) 0.64 K/uL (0.11-0.59); Monocytes % (auto) 5.8 %; Neutrophils # (auto) 7.47 K/uL (1.40-6.50); Neutrophils % (auto) 68.2 %; Platelet Count 330 K/uL (130-400); RDW Coefficient of Variation 12.9 % (11.5-14.5); RDW Standard Deviation 41.5 fL (36.4-46.3); White Blood Count 10.95 K/ul (4.8-10.8)
--- NOTE | 2023-05-30 11:31 | XRay Report ---
XR chest 1V portable CLINICAL HISTORY: Fever TECHNIQUE: Single frontal radiograph of the chest was obtained. Comparison: None available at the time of this dictation. FINDINGS: No lines and tubes are seen. The cardiomediastinal silhouette is normal. The lungs are clear. No evid ence of pleural effusion or pneumothorax. IMPRESSION: No acute abnormalities and in particular no radiographic evidence of pneumonia. ACT 112: Negative or not required by law. Electronically signed by: Isiah Arenas M.D. 05/30/2023 11:30 AM
[2023-05-30 11:42] LABS: Epithelial Cell Urine 20-30 /lpf (0-5); Hyaline Casts Urine 0-5 /lpf (0-5); Mucus Urine Present (None Prsent)
[2023-05-30 11:43] LABS: Bacteria Urine 1+ (Negative); RBC Urine 0-4 /hpf (0-4)
[2023-05-30 11:45] LABS: BUN Creatinine Ratio 20.3 (10-20); C Reactive Protein 0.95 mg/dl (0-0.5); Est GFR (African American) 102.8 ml/min; Est GFR (Non-African American) 88.7 ml/min; Potassium 3.7 mmol/L (3.5-5.1)
[2023-05-30 11:48] LABS: Albumin Level 3.6 gm/dl (3.4-5.0); Bilirubin,Total 0.3 mg/dl (0.2-1.0); Globulin 3.5 gm/dl (2.5-4.0); Total Protein 7.1 gm/dl (6.0-8.3)
[2023-05-30 11:50] LABS: Troponin I High Sensitivity 17.6 pg/ml (0-14)
[2023-05-30 11:54] LABS: INR 0.9 (0.9-1.1); Partial Thromboplastin Ratio 0.7; Partial Thromboplastin Time 20.8 Seconds (21.0-31.0)
[2023-05-30 12:00] LABS: Procalcitonin < 0.05 ng/ml (0-0.5)
[2023-05-30 12:06] LABS: Lyme Ab IgG w/WB Rflx Negative (Negative); Lyme Ab IgM w/WB Rflx Negative (Negative)
[2023-05-30] MEDS ORDERED: SODIUM CHLORIDE 0.9% 1000ML 1,000 ML IV ONE (12:08)
[2023-05-30] MEDS ORDERED: fentaNYL citrate PF 100 MCG/2 ML VIAL IV PRN (13:19)
--- NOTE | 2023-05-30 14:03 | History & Physical Report ---
Date of Service May 30, 2023 Assessment & Plan (1) Myalgia: Plan: 57 yo female with PMHx of chronic sinusitis, kidney stones, and rheumatoid arthritis presents with myalgias. #Myalgias #Elevated CK #Elevated LFTs -presented with 3 days severe myalgias. Unclear etiology. Ddx includes viral rhabdomyolysis vs myositis vs tick borne vs UTI. ?shoulder corticosteroid injection induced. Pt does have h/o RA so autoimmune etiology is in question. CK 24k, UA with 3+ blood and bacteria. Mild leukocytosis. CRP mildly elevated, ESR normal. LFTs elevated, trending upwards from a few weeks ago. Tick borne labs negative thus far. Vitals wnl, afebrile. -CXR unremarkable -received 2L NSS in ED. Will cont. with LRs @ 200mls for suspected rhabdo -start rocephin daily for possible UTI. Urine cx pending. Will hold off on tick borne treatment for now. -urine myoglobin pending -hep panel pending -pain control -rheum consulted; unfortunately patients clear coat sprayer Dr. Mayorga office is closed at this time and will reopen Friday. Would consider reaching out to them for further details of previous autoimmune workup. -trend labs #Rheumatoid Arthritis -diagnosed a few years ago, follows with [facility] (Dr. Rajeev Mayorga). -cont. hydroxychloroquine #Elevated troponin -trop 17 on admission. Suspect demand. EKG without ischemic changes. Trend. #Chronic Sinusitis -cont. montelukast #Weight Loss -cont. phentermine DVT ppx: lovenox FEN/GI: regular Code Status: full Dispo: med surg (2) Abnormal LFTs: (3) Elevated CK: (4) Sinus pressure: (5) Rheumatoid aortitis: (6) Elevated troponin: History of Present Illness Chief Complaint: myalgias Primary Care Provider: TERRANCE Gross 57 yo female with PMHx of chronic sinusitis, kidney stones, and rheumatoid arthritis presents with myalgias. 3 days ago patient began having severe generalized myalgias which have not been improving. She does endorse intermittent headache and did have increased urinary frequency with dark urine today. Otherwise denies fevers, chills, congestion, cough, chest pain, shortness of breath, abdominal pain, nausea, vomiting, constipation, diarrhea, dysuria, weakness. A day prior to her symptom onset she did have a steroid injection in her left shoulder for suspected bursitis. Her left shoulder has been hurting for the last couple of months. She did also go camping 2 weeks ago and does recall feeling an insect bite on her left neck but denies seeing any ticks or bulls eye rash. She [place]. Denies [id number] travel. Denies alcohol, tobacco, recreational drug use. Denies excessive exercise or lying down for long periods of time. She does have a history of rheumatoid arthritis on hydroxychloroquine and follows with her clear coat sprayer with Priscilla Muniz. Has not been diagnosed with any other autoimmune diseases however does state she has a long history of dry eyes and dry mouth. Of note she was seen in the ER on April [address] imaging at the time did not show imaging at that time did not show kidney stones however she does endorse having passed 10+ stones with back pain resolution. At that time her liver enzymes were mildly elevated as well. Allergies Allergy/AdvReac Type Severity Reaction Status Date / Time latex Allergy Verified 06/29/20 10:57 No Known Drug Allergies Allergy Verified 06/29/20 10:57 Home Medications Medication Instructions Recorded Confirmed Type bsrqpqatdu-twqicpfuatpyg-dhcgayub 1 - 2 tab PO Q4H PRN migraine 06/07/19 05/30/23 Rx 50 mg-325 mg-40 mg tablet headache #60 tabs cyclobenzaprine 5 mg tablet 5 mg PO TID PRN muscle spasm #10 10/05/19 05/30/23 Rx tabs baclofen 10 mg tablet 10 mg PO BID PRN Other 04/29/23 05/30/23 History conjugated estrogens 0.625 mg/gram 1 applic vaginal UD 04/29/23 05/30/23 History vaginal cream (Premarin) cyanocobalamin (vitamin B-12) 1,000 mcg PO DAILY 04/29/23 05/30/23 History 1,000 mcg tablet,extended release fluoride (sodium) 1.1 % dental 1 ea PO UD 04/29/23 05/30/23 History paste (Sodium Fluoride 5000 Dry Mouth) hydroxychloroquine 200 mg tablet 200 mg PO DAILY 04/29/23 05/30/23 History montelukast 10 mg tablet 10 mg PO DAILY 04/29/23 05/30/23 History phentermine 37.5 mg tablet 37.5 mg PO DAILY 04/29/23 05/30/23 History Turmeric 1 cap PO DAILY 05/30/23 05/30/23 History azelastine 137 mcg (0.1 %) nasal 2 sprays intranasal BID PRN Other 05/30/23 05/30/23 History spray aerosol magnesium 250 mg tablet 250 mg PO DAILY 05/30/23 05/30/23 History meloxicam 15 mg tablet 15 mg PO DAILY 05/30/23 05/30/23 History mometasone 50 mcg/actuation nasal 2 sprays intranasal DAILY PRN Other 05/30/23 05/30/23 History spray Past Med/Surg History Medical History Anxiety Arthralgia of multiple joints Arthritis of knee, degenerative Connective tissue disease overlap syndrome Dry eyes, bilateral Iron deficiency anemia Lateral meniscus tear Positive RACHEL (antinuclear antibody) Surgical History History of ankle surgery History of carpal tunnel release History of delivery History of tonsillectomy Family History Aunt Breast cancer Father Myocardial infarction Diabetes Heart disease Hypertension Mother Stroke Hearing loss Allergies Denies family history of Ovarian cancer Prostate cancer Colorectal cancer Social History Smoking Status: Never smoker Do You Dip or Chew Tobacco: No; Hx Alcohol Use: No Hx Substance Use: No Preferred Language: Thai Communication Ability: Effective Visual Impairment: Limited Hearing Ability: Normal Beliefs That Will Affect Care: None marital status: Current Living Situation: Spouse and Family Current Living Situation Comment: Lives at home with Spouse, Mother and two Grandchildren. 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 AOx3. Vitals as above. HEENT: No scleral injection or discharge.Dry mucous membranes. Clear oropharynx without exudate. Neck: Supple without lymphadenopathy or thyromegaly. Trachea midline. Lungs: Clear to auscultation bilaterally with good effort. Cardiac: Regular rate and rhythm. No murmurs. No extremity edema. 2+ distal peripheral pulses. Abdomen: Bowel sounds present. Soft, nontender, and nondistended.No guarding. Neg dawson's. No hepatosplenomegaly. MSK: No cyanosis or clubbing. Extremities motor strength 5/5. Skin: +L neck with tiny crusted lesion at insect bite site without surrounding erythema/tenderness. Neurologic: No focal deficits. PERRL. EOMI. Normal sensation bilateral extremities. Results & Data Results & Data Vital Signs (Past 12 Hours) Vital Signs Temp Pulse Pulse Resp BP BP Pulse Ox 05/30/23 13:45 78 16 142/87 H 98 05/30/23 13:00 84 21 100 05/30/23 12:30 80 17 100 05/30/23 12:00 80 17 98 05/30/23 11:46 140/86 05/30/23 11:46 93 H 14 100 05/30/23 11:30 80 18 98 05/30/23 11:09 83 18 96 05/30/23 11:46 95 H 18 140/86 99 05/30/23 11:14 79 05/30/23 10:13 36.7 C 94 H 20 135/87 100 O2 Del Method 05/30/23 13:45 Room Air 05/30/23 13:00 05/30/23 12:30 05/30/23 12:00 05/30/23 11:46 05/30/23 11:46 05/30/23 11:30 05/30/23 11:09 05/30/23 11:46 05/30/23 11:14 05/30/23 10:13 Room Air Laboratory Results Laboratory Results WBC 10.95 K/ul (4.8-10.8) H 05/30/23 11:00 RBC 5.20 M/uL (4.20-5.40) 05/30/23 11:00 Hgb 15.1 g/dl (12.0-16.0) 05/30/23 11:00 Hct 45.8 % (37.0-47.0) 05/30/23 11:00 MCV 88.1 fL (80.0-100.0) 05/30/23 11:00 MCH 29.0 pg (25.0-34.0) 05/30/23 11:00 MCHC 33.0 g/dL (32.0-36.0) 05/30/23 11:00 RDW Std Deviation 41.5 fL (36.4-46.3) 05/30/23 11:00 RDW Coeff of Annalise 12.9 % (11.5-14.5) 05/30/23 11:00 Plt Count 330 K/uL (130-400) 05/30/23 11:00 MPV 10.7 fL (9.4-12.4) 05/30/23 11:00 Immature Gran % (Auto) 0.3 % 05/30/23 11:00 Neut % (Auto) 68.2 % 05/30/23 11:00 Lymph % (Auto) 23.7 % 05/30/23 11:00 [place] % (Auto) 5.8 % 05/30/23 11:00 Eos % (Auto) 1.6 % 05/30/23 11:00 Baso % (Auto) 0.4 % 05/30/23 11:00 Neut # (Auto) 7.47 K/uL (1.40-6.50) H 05/30/23 11:00 Lymph # (Auto) 2.59 K/uL (1.2-3.4) 05/30/23 11:00 [place] # (Auto) 0.64 K/uL (0.11-0.59) H 05/30/23 11:00 Eos # (Auto) 0.18 K/uL (0-0.50) 05/30/23 11:00 Baso # (Auto) 0.04 K/uL (0-0.2) 05/30/23 11:00 Immature Gran # (Auto) 0.03 K/uL (0.01-0.20) 05/30/23 11:00 ESR 22 mm/hr (0-30) 05/30/23 11:00 PT 10.0 Seconds (9.0-12.0) 05/30/23 11:00 INR 0.9 (0.9-1.1) 05/30/23 11:00 APTT 20.8 Seconds (21.0-31.0) L 05/30/23 11:00 PTT Ratio 0.7 05/30/23 11:00 Sodium 139 mmol/L (136-145) 05/30/23 11:00 Potassium 3.7 mmol/L (3.5-5.1) 05/30/23 11:00 Chloride 106 mmol/L (98-107) 05/30/23 11:00 Carbon Dioxide 28 mmol/L (21-32) 05/30/23 11:00 Anion Gap 5 (3-11) 05/30/23 11:00 BUN 15 mg/dl (6-23) 05/30/23 11:00 Creatinine 0.74 mg/dl (0.6-1.2) 05/30/23 11:00 Est Cr Clr Drug Dosing 84.0 ml/min 05/30/23 11:00 Est GFR ( Amer) 102.8 ml/min 05/30/23 11:00 Est GFR (Non-Af Amer) 88.7 ml/min 05/30/23 11:00 BUN/Creatinine Ratio 20.3 (10-20) H 05/30/23 11:00 Glucose 98 mg/dl (70-99(Fasting)) 05/30/23 11:00 Calcium 9.0 mg/dl (8.6-10.3) 05/30/23 11:00 Total Bilirubin 0.3 mg/dl (0.2-1.0) 05/30/23 11:00 AST 518 U/L (13-39) H 05/30/23 11:00 ALT 233 U/L (7-52) H 05/30/23 11:00 Alkaline Phosphatase 107 U/L (34-104) H 05/30/23 11:00 Total Creatine Kinase 80336 U/L (26-192) H 05/30/23 11:00 Troponin I High Sens 17.6 pg/ml (0-14) H 05/30/23 11:00 C-Reactive Protein 0.95 mg/dl (0-0.5) H 05/30/23 11:00 Total Protein 7.1 gm/dl (6.0-8.3) 05/30/23 11:00 Albumin 3.6 gm/dl (3.4-5.0) 05/30/23 11:00 Globulin 3.5 gm/dl (2.5-4.0) 05/30/23 11:00 Albumin/Globulin Ratio 1.0 (0.9-2) 05/30/23 11:00 Lipase 33 U/L (11-82) 05/30/23 11:00 Procalcitonin < 0.05 ng/ml (0-0.5) 05/30/23 11:00 Urine Color Dark Yellow 05/30/23 10:46 Urine Appearance Clear (Clear) 05/30/23 10:46 Urine pH 6.5 (4.5-7.5) 05/30/23 10:46 Ur Specific [place] >= 1.030 (1.000-1.030) 05/30/23 10:46 Urine Protein 3+ (Negative) H 05/30/23 10:46 Urine Glucose (UA) Negative (Negative) 05/30/23 10:46 Urine Ketones Trace (Negative) H 05/30/23 10:46 Urine Blood 3+ (Negative) H 05/30/23 10:46 Urine Nitrite Negative (Negative) 05/30/23 10:46 Urine Bilirubin 1+ (Negative) H 05/30/23 10:46 Urine Urobilinogen Negative (Negative) 05/30/23 10:46 Ur Leukocyte Esterase Negative (Negative) 05/30/23 10:46 Urine RBC 0-4 /hpf (0-4) 05/30/23 10:46 Urine WBC 5-10 /hpf (0-5) H 05/30/23 10:46 Ur Epithelial Cells 20-30 /lpf (0-5) H 05/30/23 10:46 Urine Bacteria 1+ (Negative) H 05/30/23 10:46 Hyaline Casts 0-5 /lpf (0-5) 05/30/23 10:46 Granular Casts 1-5 /lpf (0) H 05/30/23 10:46 Urine Mucus Present (None Prsent) A 05/30/23 10:46 Anaplasma Smear See Comment 05/30/23 11:00 Lyme Disease IgG Ab Negative (Negative) 05/30/23 11:00 Lyme Disease IgM Ab Negative (Negative) 05/30/23 11:00 SARS-CoV-2, RNA, NAAT NEGATIVE (NEGATIVE) 05/30/23 12:43 Impressions Chest X-Ray 05/30/23 10:31 XR chest 1V portable CLINICAL HISTORY: Fever TECHNIQUE: Single frontal radiograph of the chest was obtained. Comparison: None available at the time of this dictation. FINDINGS: No lines and tubes are seen. The cardiomediastinal silhouette is normal. The lungs are clear. No evidence of pleural effusion or pneumothorax. IMPRESSION: No acute abnormalities and in particular no radiographic evidence of pneumonia. ACT 112: Negative or not required by law. Electronically signed by: Isiah Arenas M.D. 05/30/2023 11:30 AM Supervising Physician Co-Signing Physician Notes Patient seen and examined, chart reviewed, case discussed with Reyes Ceballos and I agree with the assessment and plan as above except as otherwise noted Labs and images reviewed Fani is a 57-year-old female with past medical history of rheumatoid arthritis and recent steroid injection in her shoulder for bursitis who presents with diffuse myalgias which started in her hands and are now in her legs which make her feel weak more from soreness and pain when she attempts to move then "weakness ". She is found to have rhabdomyolysis and transaminitis. She denies cough, shortness of breath, difficulty breathing. Has had some increased urinary frequency with small voids recently. Denies fever/chills. Is not on a statin. Has not had any medication changes recently differential includes toxic although no clear ingestion/new medications, infection although patient has not had any viral symptoms does have infected versus contaminated UA with some polyuria, inflammatory with a past history of RACHEL positive rheumatoid arthritis although her ESR is normal suggesting against underlying rheumatologic etiology. She does not show any severe electrolyte abnormalities, does have a mild elevated neutrophilic predominant leukocytosis without left shift. UA 3+ blood is likely from myoglobin. Clinically with increased frequency, although no dysuria. If Bacterial induced rhabdomyolysis --> higher risk of renal failure and will continue to monitor with aggressive fluids and antibiotic treatment. Agree with treating with fluids and electrolyte trending CK for rhabdomyolysis, and treating of potential underlying UTI with Rocephin at this time. Urine culture is pending. Resident Activity Tracking Resident Involvement: Resident Care Provided Care Provided: Adult Hospital Medicine
--- NOTE | 2023-05-30 14:16 | Electrocardiogram Report ---
Test Reason : Blood Pressure : / mmHG Vent. Rate : 083 BPM Atrial Rate : 083 BPM P-R Int : 126 ms QRS Dur : 072 ms QT Int : 390 ms P-R-T Axes : 062 074 062 degrees QTc Int : 458 ms Normal sinus rhythm Normal ECG No previous ECGs available Confirmed by Richie Kim ([id number]) on 05/30/2023 12:27:22 PM Referred By: Victoria Billingsley Confirmed By:Richie Kim
[2023-05-30] MEDS ORDERED: cefTRIAXone SODIUM 2000MG/70ML D5W IV STA (15:17)
[2023-05-30] MEDS ORDERED: ONDANSETRON 4 MG OD TAB PO PRN (16:46)
[2023-05-30] MEDS ORDERED: ACETAMINOPHEN 325 MG TAB PO PRN (16:46)
[2023-05-30] MEDS ORDERED: POLYETHYLENE (MIRALAX) 17 GM PACK PO PRN (16:46)
[2023-05-30] MEDS ORDERED: IBUPROFEN 600 MG TAB PO PRN (16:46)
[2023-05-30] MEDS: HYDROmorphone INJ 0.5 MG/0.5 ML SYR IV PRN ×2 (17:17→21:37)
[2023-05-30] MEDS: LACTATED RINGER'S 1,000 ML IV SCH ×2 (17:21→21:38)
[2023-05-30] MEDS: ENOXAPARIN INJ 40 MG/0.4 ML SYR SQ SCH (17:43)
[2023-05-31] MEDS: HYDROmorphone INJ 0.5 MG/0.5 ML SYR IV PRN ×4 (01:59→21:38)
[2023-05-31] MEDS: LACTATED RINGER'S 1,000 ML IV SCH ×6 (02:25→23:31)
[2023-05-31 07:40] LABS: Basophils # (auto) 0.03 K/uL (0-0.2); Basophils % (auto) 0.3 %; Eosinophils # (auto) 0.44 K/uL (0-0.50); Eosinophils % (auto) 4.6 %; Hemoglobin 12.7 g/dl (12.0-16.0); Immature Granulocytes # (auto) 0.02 K/uL (0.01-0.20); Immature Granulocytes % (auto) 0.2 %; Lymphocytes # (auto) 2.67 K/uL (1.2-3.4); Mean Corpuscular Hemoglobin 29.3 pg (25.0-34.0); Mean Corpuscular Hgb Conc 33.4 g/dL (32.0-36.0); Mean Corpuscular Volume 87.8 fL (80.0-100.0); Mean Platelet Volume 10.7 fL (9.4-12.4); Monocytes # (auto) 0.42 K/uL (0.11-0.59); Monocytes % (auto) 4.4 %; Neutrophils # (auto) 5.95 K/uL (1.40-6.50); Neutrophils % (auto) 62.5 %; Platelet Count 177 K/uL (130-400); RDW Coefficient of Variation 12.8 % (11.5-14.5); RDW Standard Deviation 41.2 fL (36.4-46.3); Red Blood Count 4.33 M/uL (4.20-5.40); White Blood Count 9.53 K/ul (4.8-10.8)
[2023-05-31] MEDS: MONTELUKAST SODIUM 10 MG TABLET PO SCH (08:21)
[2023-05-31] MEDS ORDERED: HYDROXYCHLOROQUINE SULFATE 200 MG TAB PO SCH (09:00)
--- NOTE | 2023-05-31 09:31 | Rheumatology Consultation ---
Rheumatology Consultation DOS May 31, [address] Ceballos Attending Physician Dr Chandra Reason for Consultation myositis Assessment & Plan (1) Elevated CK: presented with significant ly elevated ck suggestive of rhabdomyositis likely toxic in nature - either med, infectious (viral) or other. the degree of elevated CK with normal ESR and her physical exam points away from autoimmune related. it is interesting that she reported a mildly elevated CK in April noted by labs by her senior management consultant and when she came to the ED 04/29 her lfts were mildly elevated. do wonder if she has been having myositis for several weekss and finally hit a tipping point that brought her to the ED. in reviewing her med list phentermine is associated with myositis when I did a quick search. she reports restarting this medication around 1 month ago. she has used it since last april but not consistently. there are really no other medications on her list that would be concerning that I can tell. no steroids at this point as not felt to be autoimmune. would continue treatment for rhabdo and avoid phentermine at this point. will discuss with house staff as well. instructed her to contact Dr Pimentel after discharge for follow up (2) Myositis: see #1 Myositis location: multiple sites Myositis type: unspecified type Qualified Code(s): M60.9 - Myositis, unspecified (3) Rhabdomyolysis: see #1 Rhabdomyolysis type: non-traumatic Qualified Code(s): M62.82 - Rhabdomyolysis (4) Rheumatoid arthritis: unlikely related to her current presentation of mysotis given normal ESR, current exam and degree of elevation of CK. can continue with plaquenil. plaquenil has been associated with a myopathy but not a myositis Plan see #1 History of Present Illness Reason for Consultation: myositis Requesting Physician: Dr Ceballos Attending Physician: Allison Vega MD History of Present Illness Fani states she was diagnosed with RA over 5 yrs ago. she states at that time she was dealing with knee pain and seeing orthopaedics and failed steroid and gel injections. she was referred to Dr Pimentel ([facility]) and based on labs was told she had RA. she states she did have diffuse joint pains as well at that time. she states that plaquenil has been beneficial for her arthritis. if she misses doses her joints ache more. 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 she presented to [facility] with worsening muscle pains yesterday. she states that her muscle pains started on friday after work and worsened over the next few days. when she presented tot he [facility] ED yesterday her CK was noted to be around 24K with elevated ASST/ALT, alk phos and troponin. she reports that she did not take anything that was new for her. she has not been sick and no sick contacts. she reports a bug bite to her left anterior neck while at her camp 2 weeks ago but no tick bites that she is aware of. other than the muscle pains and associated weakness she feels fine. she was here at [facility] ED 04/29/23 for abd pain and diagnosed with enteritis and possible kidney stones. she was sent home and saw Dr Perkins of [place]. he did a cystoscopy and no stones found and the CT while at [facility] did not show stones. inbetween the ed v isit and seeing Dr Perkins she did pass small debrie that was sent for stone analysis but no definite stone noted in [facility] labs. she reports taking flomax x 1 dose around that time. she mentions that back in April her 's insurance was changing and Dr Pimentel got a bunch of labs and noted her CK was mildly elevated but her Liver studies were normal. she is not sure why he ordered a CK at that time given she had no diffuse muscle pains or weakness. she was sent for a liver US that was done at [facility] and was normal. she reports Dr Pimentel felt it was related to her job. she has been dealing with left shoulder pain and did see [facility] on Friday of this past week and was diagnosed with a bursitis. she did receive a steroid injection Friday and that night had more pain but it is now better. she hgas toelrated steroid injections in the past. she denies any fevers, chills, N,V,D or rashes. no trouble breathing or swallowing. Allergies Allergy/AdvReac Type Severity Reaction Status Date / Time latex Allergy Verified 06/29/20 10:57 No Known Drug Allergies Allergy Verified 06/29/20 10:57 Home Medications Medication Instructions Recorded Confirmed Type ozrqndphcg-bjtsjgowkmkjl-bheqzpja 1 - 2 tab PO Q4H PRN migraine 06/07/19 05/30/23 Rx 50 mg-325 mg-40 mg tablet headache #60 tabs cyclobenzaprine 5 mg tablet 5 mg PO TID PRN muscle spasm #10 10/05/19 05/30/23 Rx tabs baclofen 10 mg tablet 10 mg PO BID PRN Other 04/29/23 05/30/23 History conjugated estrogens 0.625 mg/gram 1 applic vaginal UD 04/29/23 05/30/23 History vaginal cream (Premarin) cyanocobalamin (vitamin B-12) 1,000 mcg PO DAILY 04/29/23 05/30/23 History 1,000 mcg tablet,extended release fluoride (sodium) 1.1 % dental 1 ea PO UD 04/29/23 05/30/23 History paste (Sodium Fluoride 5000 Dry Mouth) hydroxychloroquine 200 mg tablet 200 mg PO DAILY 04/29/23 05/30/23 History montelukast 10 mg tablet 10 mg PO DAILY 04/29/23 05/30/23 History phentermine 37.5 mg tablet 37.5 mg PO DAILY 04/29/23 05/30/23 History Turmeric 1 cap PO DAILY 05/30/23 05/30/23 History azelastine 137 mcg (0.1 %) nasal 2 sprays intranasal BID PRN Other 05/30/23 05/30/23 History spray aerosol magnesium 250 mg tablet 250 mg PO DAILY 05/30/23 05/30/23 History meloxicam 15 mg tablet 15 mg PO DAILY 05/30/23 05/30/23 History mometasone 50 mcg/actuation nasal 2 sprays intranasal DAILY PRN Other 05/30/23 05/30/23 History spray Patient History Medical History (Updated 05/31/23 @ 09:45 by Ankush Monique MD) Anxiety Arthralgia of multiple joints Arthritis of knee, degenerative Connective tissue disease overlap syndrome Dry eyes, bilateral Iron deficiency anemia Lateral meniscus tear Positive RACHEL (antinuclear antibody) Rheumatoid arthritis Surgical History History of ankle surgery History of carpal tunnel release History of delivery History of tonsillectomy Family History Aunt Breast cancer Father Myocardial infarction Diabetes Heart disease Hypertension Mother Stroke Hearing loss Allergies Denies family history of Ovarian cancer Prostate cancer Colorectal cancer Social History Smoking Status: Never smoker Do You Dip or Chew Tobacco: No; Hx Alcohol Use: No Hx Substance Use: No Preferred Language: Persian Communication Ability: Effective Visual Impairment: Limited Hearing Ability: Normal Household Worker Required: No Beliefs That Will Affect Care: None marital status: Current Living Situation: Family Current Living Situation Comment: Lives at home with Spouse, Mother and two Grandchildren. 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- [employer] How many Children do You have: 2 Other Information That Helps Us Care for You: No Feels Safe at Home: Yes Safety Concerns: Feels Safe At This Time Childhood Exposure to Second-Hand Smoke: Yes caffeine: Yes (Soda x 1 bottle per day.) during the past year weight has: increased > 10 lbs Dental Care, Regularly: Yes Physical Activity Frequency: Daily Seatbelt Use: always Sunscreen Use: No Assistive Devices: Glasses Review of Systems Constitutional: none Eyes: none Ear, Nose, Mouth, Throat: none Respiratory: none Cardiovascular: Additional Comments: none Gastrointestinal: see above Genitourinary: see above Musculoskeletal: muscle pains - diffuse Integumentary: none Physical Exam Constitutional: alert, examined in bad, NAD Eyes: PERRL, normal conjunctiva ENMT: normal mucose, moist, no ulcers Respiratory: CTA B/L no wheezes or crackles Cardiovascular: normal s1 and s2, no murmurs, regular Gastrointestinal (Abdomen): soft, NT, ND + BS Musculoskeletal: normal muscle strength for proximal and distal muscles. strength testing caused mild discomfort more in lower legs than anywhere else. no synovitis noted has patricia nodes of all PIPs - good ROM of both shoulders with mild discomfort on both sides L>R crepitus on exam both knees but no effusions Skin: no rashes Results & Data Vital Signs (Past 12 Hours) Vital Signs Temp Pulse Resp BP BP Pulse Ox O2 Del Method 05/31/23 08:07 36.8 C 76 16 138/86 99 Room Air 05/30/23 23:22 37.1 C 89 16 145/84 H 98 Room Air Laboratory Results reviewed Diagnostic Findings reviewed imaging
[2023-05-31 09:34] LABS: Albumin Level 2.7 gm/dl (3.4-5.0); BUN Creatinine Ratio 19.6 (10-20); Bilirubin,Total 0.2 mg/dl (0.2-1.0); C Reactive Protein 1.06 mg/dl (0-0.5); Calcium 8.4 mg/dl (8.6-10.3); Est GFR (African American) 118.3 ml/min; Est GFR (Non-African American) 102.1 ml/min; Globulin 2.7 gm/dl (2.5-4.0); Magnesium 1.9 mg/dl (1.7-2.4); Potassium 4.2 mmol/L (3.5-5.1); Total Protein 5.4 gm/dl (6.0-8.3)
[2023-05-31] MEDS ORDERED: cefTRIAXone SODIUM 2,000 MG in DEXTROSE 5% 50 ML IV SCH (16:00)
--- NOTE | 2023-05-31 16:45 | Hospitalist Progress Note ---
Date of Service May 31, 2023 Assessment & Plan (1) Elevated CK: Plan: Fani is a 57 yo F who was admitted on 05/30/23 for diffuse myalgias - CK level elevated to 23k on admission, suggestive of rhabdomyositis likely toxic in nature - either med, infectious (viral) or other. --> CK level improved to 16k today with IV hydration - elevated AST/ALT/alk phos --> trending down today - urine myoglobin level pending - patient with muscle pain on exam, but no weakness - As for etiology of her symtpoms and elevated CK level, no apparent trigger per history. - Normal WBC, procal, CXR, and negative tick born testing make infection unlikley (although anaplasma DNA is still pending). Urine culture is pending as well but patient denied any preceding UTI symptoms. Empiric abx stopped. covid 19 testing neg. - Rheum consult obtained --> original unlikely to be autoimmune due to normal ESR. Phentermine known to be myotoxic --> recommend she stop taking (initially prescribed for weight loss reasons); has been discontinued. - topical voltren prn for leg pain - she does follow with outpatient rheumatology for her RA -- recommend outpatient follow up after this admission #Rheumatoid Arthritis -diagnosed a few years ago, follows with [facility] (Dr. Rajeev Mayorga). -cont. hydroxychloroquine #Elevated troponin -trop 17 on admission --> has trended down. Suspect demand. EKG without ischemic changes. Trend. #Chronic Sinusitis -cont. montelukast Diet: Regular. Continue IVF at 200mls/hr Dispo: Med/Surg DVT ppx: Lovenox Code: Full Patient suitable for discharge once CK/LFTs continue to trend down and she feels like she can comfortable ambulate again. Admission and Anticipated Discharge Date Admission Date: May 30, 2023 Subjective Patient feeling somewhat better today -- leg pain still present but improved. She is frustrated that we have no answers as to what is causing her symtpoms She denies any etoh/illicit drug use. No recent trauma or strenuous physical activity. No burn or crush injury. No significant heat exposure. No recent immobilization or preceding surgery. No seizure. No known infection. Review of Systems Review of Systems: All systems reviewed & are unremarkable except as noted in HPI & below Physical Exam Constitutional: WD/WN, vitals as above cooperative and comfortable; no acute distress Eyes: PERRL, conjunctivae normal, anicteric sclerae ENMT: external ear and nose normal, oropharynx normal Neck: trachea midline Respiratory: normal respiratory effort, lungs clear to auscultation Cardiovascular: RRR, no murmur, no edema Heart Sounds: normal S1 and normal S2 Gastrointestinal (Abdomen): normal bowel sounds, soft, nontender, no hepatosplenomegaly Musculoskeletal: Head/Neck/Chest: normocephalic and head atraumatic Skin: no rashes, warm and dry Neurologic: moves all extremities Patient with 5/5 muscle strength with shoulder shrug, elbow flexion and extension, hip flexion b/l Psychiatric: A+Ox3, euthymic affect Results & Data Results & Data Vital Signs (Past 12 Hours) Vital Signs Temp Pulse Resp BP Pulse Ox O2 Del Method 05/31/23 15:36 37.3 C 79 16 146/70 H 97 Room Air 05/31/23 08:07 36.8 C 76 16 138/86 99 Room Air PG Care Time/CCT Total # of Minutes Spent Total Time Spent with Patient: Total time spent is greater than 50% in coordination of care (as documented) at patient's floor/unit and/or counseling patient: C[place] [address] SUB INP/OBS CARE 2/35MIN Patient Type Established Diagnoses Elevated CK R74.8
[2023-05-31] MEDS: ENOXAPARIN INJ 40 MG/0.4 ML SYR SQ SCH (17:21)
[2023-05-31] MEDS: MELOXICAM 7.5 MG TAB PO SCH (18:05)
[2023-05-31] MEDS: HYDROXYCHLOROQUINE SULFATE 200 MG TAB PO SCH (18:05)
[2023-05-31] MEDS: DICLOFENAC SOD 1% GEL 100 GM TUBE EXT SCH (20:35)
[2023-06-01] MEDS: HYDROmorphone INJ 0.5 MG/0.5 ML SYR IV PRN ×2 (03:47→09:42)
[2023-06-01] MEDS: LACTATED RINGER'S 1,000 ML IV SCH ×4 (04:40→19:35)
[2023-06-01] MEDS ORDERED: Nursing to Pharmacy Communication SCH (05:00)
[2023-06-01] MEDS: DICLOFENAC SOD 1% GEL 100 GM TUBE EXT SCH ×3 (06:22→21:50)
[2023-06-01 07:50] LABS: Albumin Level 2.7 gm/dl (3.4-5.0); Bilirubin Direct 0.1 mg/dl (0-0.2); Bilirubin,Total 0.2 mg/dl (0.2-1.0); Total Protein 5.2 gm/dl (6.0-8.3)
[2023-06-01] MEDS: HYDROXYCHLOROQUINE SULFATE 200 MG TAB PO SCH (08:19)
[2023-06-01] MEDS: MELOXICAM 7.5 MG TAB PO SCH (08:20)
[2023-06-01] MEDS: MONTELUKAST SODIUM 10 MG TABLET PO SCH (08:20)
[2023-06-01] MEDS ORDERED: oxyCODONE HCL IR 5 MG TAB (IMMEDIATE RELEASE) PO PRN (11:20)
--- NOTE | 2023-06-01 11:48 | Hospitalist Progress Note ---
Date of Service June 01, 2023 Assessment & Plan (1) Elevated CK: Plan: Fani is a 57 yo F who was admitted on 05/30/23 for diffuse myalgias - CK level elevated to 23k on admission, suggestive of rhabdomyositis likely toxic in nature - either med, infectious (viral) or other. -CK level continues to improve daily and now down to 9000 with IV hydration - elevated AST/ALT/alk phos --> trending down today and also likely related to rhabdomyolysis - urine myoglobin level pending - patient with muscle pain on exam, but no weakness or evidence of compartment syndrome-upper extremities and proximal lower extremity myalgias are resolved, remains with calf pains - As for etiology of her symptoms and elevated CK level, no apparent trigger per history. - Normal WBC, procal, CXR, and negative tick born testing make infection unlikely (although anaplasma DNA is still pending). Urine culture is pending as well but patient denied any preceding UTI symptoms. Empiric abx stopped. -covid 19 testing neg. - Rheum consult obtained --> original unlikely to be autoimmune due to normal ESR. Phentermine known to be myotoxic --> recommend she stop taking (initially prescribed for weight loss reasons); has been discontinued. - topical voltren prn and also started on Mobic for leg pain - she does follow with outpatient rheumatology for her RA -- recommend outpatient follow up after this admission -Follow CK, CMP in the morning #Rheumatoid Arthritis -diagnosed a few years ago, follows with [facility]ology (Dr. Rajeev Mayorga). -cont. hydroxychloroquine #Elevated troponin -trop 17 on admission --> has trended down to normal on repeat check. Suspect demand. EKG without ischemic changes #Chronic Sinusitis -cont. montelukast Dispo: Med/Surg, ongoing stay for pain control and to monitor for continued improvement of rhabdomyolysis. Add PT/OT consults given difficulty with ambulation DVT ppx: Lovenox has been declined by the patient as she reports that she has a history of "negative platelets" and describes some sort of bleeding disorder from when she was 38 years ago. She does not want any blood thinners SCDs would not be a good idea in the setting of rhabdomyolysis Code: Full Admission and Anticipated Discharge Date Admission Date: May 30, 2023 Subjective Patient reports overall pain is much improved and her arms and thighs, but continues with pain through the bilateral legs into the bottoms of her feet. Her legs and calves feel very tight with dorsiflexion. She is also continuing to have some pain in the left shoulder which was chronic for which she received a steroid injection last week. This is making it difficult for her to get out of bed on her own. She is making plenty of urine. She is tearful that she is in the hospital and feeling poorly. Physical Exam Constitutional: WD/WN, vitals as above Neck: trachea midline, no thyromegaly Respiratory: normal respiratory effort, lungs clear to auscultation Cardiovascular: RRR, no murmur, no edema Vessels: posterior tibial pulses present and dorsalis pedis pulses present Chest (Breasts): Chest: normal inspection of chest Gastrointestinal (Abdomen): normal bowel sounds, soft, nontender, no hepatosplenomegaly Musculoskeletal: Extremities: extremities normal to inspection; no cyanosis and no clubbing +TTP over bilat calves, no edema, good cap refill, good sensation in feet, pulses palpable distally Skin: no rashes, warm and dry Neurologic: moves all extremities and awake; no focal motor deficits Results & Data Results & Data Vital Signs (Past 12 Hours) Vital Signs Temp Pulse Resp BP Pulse Ox O2 Del Method 06/01/23 10:00 Room Air 06/01/23 08:06 37.0 C 61 16 116/79 97 Room Air Laboratory Results LFTs, CK reviewed Urine culture with pinpoint growth-pending Hepatitis panel still pending PG Care Time/CCT Total # of Minutes Spent Total Time Spent with Patient: Total time spent is greater than 50% in coordination of care (as documented) at patient's floor/unit and/or counseling patient: Coding Level of Care Code 53815 SUB INP/OBS CARE 3/50MIN Diagnoses Elevated CK R74.8
[2023-06-02] MEDS: HYDROmorphone INJ 0.5 MG/0.5 ML SYR IV PRN (00:27)
[2023-06-02] MEDS: LACTATED RINGER'S 1,000 ML IV SCH ×3 (00:28→10:37)
[2023-06-02] MEDS: DICLOFENAC SOD 1% GEL 100 GM TUBE EXT SCH (05:29)
[2023-06-02 07:50] LABS: Basophils # (auto) 0.05 K/uL (0-0.2); Basophils % (auto) 0.7 %; Eosinophils # (auto) 0.92 K/uL (0-0.50); Eosinophils % (auto) 13.2 %; Hematocrit (blood only) 33.2 % (37.0-47.0); Hemoglobin 11.2 g/dl (12.0-16.0); Immature Granulocytes # (auto) 0.01 K/uL (0.01-0.20); Immature Granulocytes % (auto) 0.1 %; Lymphocytes # (auto) 2.11 K/uL (1.2-3.4); Lymphocytes % (auto) 30.3 %; Mean Corpuscular Hgb Conc 33.7 g/dL (32.0-36.0); Mean Platelet Volume 10.7 fL (9.4-12.4); Monocytes # (auto) 0.56 K/uL (0.11-0.59); Neutrophils # (auto) 3.31 K/uL (1.40-6.50); Neutrophils % (auto) 47.7 %; Platelet Count 266 K/uL (130-400); RDW Coefficient of Variation 12.5 % (11.5-14.5); RDW Standard Deviation 40.6 fL (36.4-46.3); Red Blood Count 3.73 M/uL (4.20-5.40); White Blood Count 6.96 K/ul (4.8-10.8)
[2023-06-02 08:11] LABS: BUN Creatinine Ratio 22.4 (10-20); Calcium 8.1 mg/dl (8.6-10.3); Creatinine Clr Calc Pharmacy 127.4 ml/min; Est GFR (African American) 123.6 ml/min; Est GFR (Non-African American) 106.6 ml/min; Potassium 4.1 mmol/L (3.5-5.1)
[2023-06-02] MEDS: MELOXICAM 7.5 MG TAB PO SCH (08:14)
[2023-06-02] MEDS: MONTELUKAST SODIUM 10 MG TABLET PO SCH (08:14)
[2023-06-02] MEDS: HYDROXYCHLOROQUINE SULFATE 200 MG TAB PO SCH (08:15)
[2023-06-02 08:58] LABS: Albumin Level 2.7 gm/dl (3.4-5.0); Bilirubin,Total 0.2 mg/dl (0.2-1.0); Globulin 2.6 gm/dl (2.5-4.0); Total Protein 5.3 gm/dl (6.0-8.3)
--- NOTE | 2023-06-02 13:58 | Discharge Summary ---
Discharge Summary Date of Service June 02, 2023 Notes For Next Care Provider Check CK, CMP once weekly until normalized Medication Changes From Visit Discontinued phentermine Admission HPI Per Admitting Provider 57 yo female with PMHx of chronic sinusitis, kidney stones, and rheumatoid arthritis presents with myalgias. 3 days ago patient began having severe generalized myalgias which have not been improving. She does endorse intermittent headache and did have increased urinary frequency with dark urine today. Otherwise denies fevers, chills, congestion, cough, chest pain, shortness of breath, abdominal pain, nausea, vomiting, constipation, diarrhea, dysuria, weakness. A day prior to her symptom onset she did have a steroid injection in her left shoulder for suspected bursitis. Her left shoulder has been hurting for the last couple of months. She did also go camping 2 weeks ago and does recall feeling an insect bite on her left neck but denies seeing any ticks or bulls eye rash. [place]. Denies [id number] travel. Denies alcohol, tobacco, recreational drug use. Denies excessive exercise or lying down for long periods of time. 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 Has not been diagnosed with any other autoimmune diseases however does state she has a long history of dry eyes and dry mouth. Of note she was seen in the ER on April [address] imaging at the time did not show imaging at that time did not show kidney stones however she does endorse having passed 10+ stones with back pain resolution. At that time her liver enzymes were mildly elevated as well. Principal Dx & Hospital Course #1 = Principal Diagnosis (1) Elevated CK: Fani is a 57 yo F who was admitted on 05/30/23 for diffuse myalgias - CK level elevated to 23k on admission, suggestive of rhabdomyositis likely toxic in nature - either med, infectious (viral) or other. -CK level continues to improve daily and now down to 5000 with IV hydration - elevated AST/ALT/alk phos --> continue to be trending down today and also likely related to rhabdomyolysis - urine myoglobin level pending - patient with muscle pain on exam, but no weakness or evidence of compartment syndrome-upper extremities and proximal lower extremity myalgias are resolved, remains with minimal calf pains but overall much improved - As for etiology of her symptoms and elevated CK level, no apparent trigger per history. - Normal WBC, procal, CXR, and negative tick born testing make infection unlikely (although anaplasma DNA is still pending). Urine culture is pending as well but patient denied any preceding UTI symptoms. Empiric abx stopped. -covid 19 testing neg. - Rheum consult obtained --> original unlikely to be autoimmune due to normal ESR. Phentermine known to be myotoxic --> recommend she stop taking (initially prescribed for weight loss reasons); has been discontinued. - topical voltren prn and Mobic for leg pain - she does follow with outpatient rheumatology for her RA -- recommend outpatient follow up after this admission -Follow CK, CMP in one week as outpt and continue to follow until normalized #Rheumatoid Arthritis -diagnosed a few years ago, follows with [facility]ology (Dr. Rajeev Mayorga). -cont. hydroxychloroquine #Elevated troponin -trop 17 on admission --> has trended down to normal on repeat check. Suspect demand. EKG without ischemic changes #Chronic Sinusitis -cont. montelukast Dispo-much improved, stable for dc to home Discharge Exam Constitutional WD/WN, vitals as above Neck trachea midline, no thyromegaly Respiratory normal respiratory effort, lungs clear to auscultation Cardiovascular RRR, no murmur, no edema Chest (Breasts) Chest: normal inspection of chest Gastrointestinal (Abdomen) normal bowel sounds, soft, nontender, no hepatosplenomegaly Musculoskeletal Extremities: extremities normal to inspection; no cyanosis and no clubbing Skin no rashes, warm and dry Neurologic moves all extremities and awake; no focal motor deficits Updated Medication List Medication Instructions Recorded Confirmed Type [id number] 1 - 2 tab PO Q4H PRN migraine 06/07/19 05/30/23 Rx 50 mg-325 mg-40 mg tablet headache #60 tabs cyclobenzaprine 5 mg tablet 5 mg PO TID PRN muscle spasm #10 10/05/19 05/30/23 Rx tabs baclofen 10 mg tablet 10 mg PO BID PRN Other 04/29/23 05/30/23 History conjugated estrogens 0.625 mg/gram 1 applic vaginal UD 04/29/23 05/30/23 History vaginal cream (Premarin) cyanocobalamin (vitamin B-12) 1,000 mcg PO DAILY 04/29/23 05/30/23 History 1,000 mcg tablet,extended release fluoride (sodium) 1.1 % dental 1 ea PO UD 04/29/23 05/30/23 History paste (Sodium Fluoride 5000 Dry Mouth) hydroxychloroquine 200 mg tablet 200 mg PO DAILY 04/29/23 05/30/23 History montelukast 10 mg tablet 10 mg PO DAILY 04/29/23 05/30/23 History phentermine 37.5 mg tablet 37.5 mg PO DAILY 04/29/23 05/30/23 History Turmeric 1 cap PO DAILY 05/30/23 05/30/23 History azelastine 137 mcg (0.1 %) nasal 2 sprays intranasal BID PRN Other 05/30/23 05/30/23 History spray aerosol magnesium 250 mg tablet 250 mg PO DAILY 05/30/23 05/30/23 History meloxicam 15 mg tablet 15 mg PO DAILY 05/30/23 05/30/23 History mometasone 50 mcg/actuation nasal 2 sprays intranasal DAILY PRN Other 05/30/23 05/30/23 History spray oxycodone 5 mg tablet 5 mg PO Q4H PRN moderate-severe 06/02/23 Rx pain #10 tabs Hospital Stay Data Consultations 05/30/23 12:47 ED Decision to Admit Stat 05/30/23 14:49 Consult Rheumatology Routine Pending Results Patient Have Any Pending Studies at Discharge: Yes (Hepatitis panel,Anaplasmosis DNA PCR) Discharge Instructions Given to Patient (Per Discharging Provider) You were admitted with rhabdomyolysis (breakdown of the muscle cells) which may be from taking phentermine. You should not take this medication again moving forward. Your CK and liver enzyme tests did greatly improve. Stay well hydrated and refrain from any strenuous activity for 2 more weeks at least until your blood tests are completely back to normal. Please have your PCP check your CK and CMP once weekly until all are completely back to normal. Total Time Total Time Spent Total Time Spent (In Minutes): 35 min Coding Level of Care Code 38974 INP/OBS DISCH >30 MIN Diagnoses Elevated CK R74.8
[2023-06-05 11:32] LABS: HBSAG REACTIVE (NON-REACTIVE); Hepatitis A Antibody IgM NON-REACTIVE (NON-REACTIVE); Hepatitis B Core Antibody IgM NON-REACTIVE (NON-REACTIVE)
--- NOTE | 2023-06-13 11:22 | Coding Query ---
CODING QUERY To promote full compliance with coding requirements relating to patient care, provider participation is requested in all cases of wastewater technician uncertainty. Please assist us with the question(s) below: Coding Question(s): The documentation is suggestive of diagnosis rhabdomyositis likely toxic in nature - either med, infectious (viral) or other. The Phentermine was discontinued during the stay due to Phentermine known to be myotoxic. Given the information above, in your professional opinion, please specify if there is a cause and effect relationship between the patients Rhabdomyositis and phentermine use. (x ) Rhabdomyositis caused by Phentermine use ( ) Rhabdomyositis, Phentermine not a contributing factor ( ) Rhabdomyositis due to infection ( ) Other, please specify Physician's Response(s): Thank you Susan Chandler Principal Diagnosis: "that condition established after study, to be chiefly responsible for occasioning the admission of the patient to the hospital for care." Co-Existing Principal Diagnosis: "when two or more diagnoses equally meet the criteria for principal diagnosis as determined by the circumstances of admission, diagnostic work up, and/or therapy provided, and the Alphabetic Index, Tabular List, or another coding guideline does not provide sequencing direction, any one of the diagnoses may be sequenced first." "When the physician has documented what appears to be a current diagnosis in the body of the record, but has not included the diagnosis in the final diagnostic statement, the physician should be asked whether the diagnosis should be added." (Source Coding [facility] 2 QTR90. p3-4) ANOOP
== END 2023-06-02 15:15 | disposition home or self-care (01) | DRG 558 ==
LOC: ED 10:08 → SUATTDRO 14:41 → 3N 14:41